=== PATIENT | female | born 1990 | race Caucasian/White ===

== ENCOUNTER 2025-07-24 18:05 | Inpatient (IN) | payer MEDICAID ==
[2025-07-24 18:44] LABS: APPEARANCE,URINE CLEAR; GLUCOSE,URINE NEGATIVE (NEGATIVE); OCCULT BLOOD,URINE NEGATIVE (NEGATIVE)
[2025-07-24] MEDS ORDERED: ePHEDrine 50 MG/ML SDV IVPUSH PRN (18:44)
[2025-07-24] MEDS ORDERED: dexmedeTOMIDine HCl 200 MCG/2 ML SDV EPIDUR SCH (18:45)
[2025-07-24] MEDS ORDERED: Ropivacaine HCl/PF 400 MG in Premix Bag 1 BAG EPIDUR SCH (18:45)
[2025-07-24] MEDS ORDERED: Butorphanol 1 MG/ML SDV IVPUSH PRN (22:28)
[2025-07-24] MEDS ORDERED: Sodium Chloride 0.9% 2.5 ML Syringe FLUSH PRN (22:28)
[2025-07-24] MEDS ORDERED: Sodium Chloride 0.9% 10 ML Syringe FLUSH PRN (22:28)
[2025-07-24] MEDS ORDERED: Water For Irrigation,Sterile 1,000 ML Container IRR PRN (22:28)
[2025-07-24] MEDS ORDERED: Carboprost Tromethamine 250 MCG/1 mL Vial IM PRN (22:28)
[2025-07-24] MEDS ORDERED: Lactated Ringers 1,000 ML IV SCH (22:30)
[2025-07-24] MEDS ORDERED: Oxytocin/0.9 % Sodium Chloride 30 UNIT/500 ML BAG IV SCH (22:30)
[2025-07-24 22:47] LABS: MEAN PLATELET VOLUME 11.3 fL (9.4-12.3); NRBC ABSOLUTE 0.00 K/uL (0.00-0.02); NRBC PERCENT 0.0 /100WBC (0.0-0.2); PLATELET COUNT,PLT 300 K/uL (150-400); RED BLOOD CELL COUNT 4.19 M/uL (4.10-5.30); WHITE BLOOD CELL COUNT,WBC 7.47 K/uL (3.9-11.3)
[2025-07-25] MEDS ORDERED: Lanolin 100% Cream 7 GM Tube TOP PRN (10:30)
[2025-07-25] MEDS ORDERED: Witch Hazel Medicated Pads 40/Jar TOP PRN (10:30)
[2025-07-25] MEDS ORDERED: Benzocaine/Menthol 20%-0.5% Spray 78 GM Cannister TOP PRN (10:30)
[2025-07-25] MEDS ORDERED: Benzocaine/Menthol 20%-0.5% Spray 78 GM Cannister ONE (11:45)
[2025-07-25] MEDS ORDERED: Witch Hazel Medicated Pads 40/Jar TOP ONE (11:45)
[2025-07-26 15:19] VITALS: BP 107/68; PULSE 81
== END 2025-07-26 16:49 | disposition home or self-care (01) | DRG 807 ==
LOC: MW.OB 18:05 → MW.OBCHECK 18:05 → MW.OB 20:00 → OBSVTOIN 07-25 10:05 → MW.OB 07-25 15:00
PROVIDERS: ADMIT Obstetrics & Gynecology Gynecology; ATTEND Obstetrics & Gynecology Gynecology
PROC: 10E0XZZ Delivery of Products of Conception, External Approach (ICD-10-PCS; principal; 2025-07-25)
PROC: 0KQM0ZZ Repair Perineum Muscle, Open Approach (ICD-10-PCS; 2025-07-25)
DX: O34.211 Maternal care for low transverse scar from previous cesarean delivery (principal); Z37.0 Single live birth; O70.1 Second degree perineal laceration during delivery; Z3A.37 37 weeks gestation of pregnancy; Z79.899 Other long term (current) drug therapy
CPT/HCPCS: 36415; 59025; 59409; 59612; 81003; 84112; 85014; 85018; 85027; 86850; 86900; 86901; 87086; A9270-GY; J2003